=== PATIENT | female | born 1990 ===

== ENCOUNTER 2023-07-08 15:42 | Outpatient (AMB) | payer OTHER, SELFPAY ==
--- NOTE | 2023-07-08 15:43 | MHC.PC.OV ---
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 Transferring care from Dr Jocelyn Russell. Medical records have not been requested and have not received. 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 Previous PCP Dr. Russell in [place], last visit couple years ago. Medical history significant for environmental allergies-stable with Singulair daily and right hip/SIJ pain for the past couple years-patient denies injury-reports taking Aleve with some improvement - interested in PT. patient reports that eye and dental exams up-to-date. Reports tetanus vaccine in 2019. Reports Pap smear 12/2022 which was normal with HPV positive and repeat Pap smear in 1 year this was done in [place]-patient will establish with gynecology in the area. Patient reports that she had normal blood work couple months ago and she would like to hold off on new blood work orders at this time. No shortness of breath or chest pain. 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 1. Little interest or pleasure in doing things: not at all 2. Feeling down, depressed, or hopeless: not at all 3. Trouble falling or staying asleep, or sleeping too much: not at all 4. Feeling tired or having little energy: not at all 5. Poor appetite or overeating: not at all 6. Feeling bad about yourself - or that you are a failure or have let yourself or your family down: not at all 7. Trouble concentrating on things, such as reading the newspaper or watching television: not at all 8. Moving or speaking so slowly that other people could have noticed. Or the opposite - being so fidgety or restless that you have been moving around a lot more than usual: not at all 9. Thoughts that you would be better off or of hurting yourself in some way: not at all Total score: 0 Depression Screening Interpretation: Negative Depression Screening Done: Yes 25119 - PHQ-9 Billing: Yes Source: Developed by Drs. Nathaniel Ahuja, Iliana Mirza, Nestor Coe and colleagues, with an educational tejinder from [employer]. Thrive Questionnaire Date Thrive assessed: 07/08/23 I am a: Patient What is your living situation today?: I have a steady place to live Within the past 12 months, did the food you bought not last and you didn't have the money to get more?: Never true Within the past 12 months, did you worry whether your food would run out before you got money to buy more?: Never true Do you have trouble paying for medicines?: No Do you have trouble getting transportation to medical appointments?: No Do you have trouble paying your heating and electricity bill?: No Do you have trouble taking care of your child, family member or friend?: No Do you have trouble with day-to-day activities such as bathing, preparing meals, shopping, managing finances, etc.?: No Are you currently unemployed and looking for a job?: No Are you interested in more education?: No Currently or been in a relationship where the following occur: no concerns reported AUDIT C Alcohol Use Questionnaire (AUDIT-C) 1. How often do you have a drink containing alcohol?: 2-3 times a week Total Score: 3 Score Reviewed/Action Taken: No CONNOR-7 AMB Questionnaire CONNOR-7 Date CONNOR - 7 assessed: 07/08/23 Feeling nervous, anxious, or on edge: 0 = Not at all Not being able to stop or control worryin = Not at all Worrying too much about different things: 0 = Not at all Trouble relaxin = Not at all Being so restless that it is hard to sit still: 0 = Not at all Becoming easily annoyed or irritable: 0 = Not at all Feeling afraid as if something awful might happen: 0 = Not at all Total CONNOR-7 score (0-4 normal; 5-9 mild; 10-14 moderate; 15-21 severe): 0 Source: Developed by Drs. Nathaniel Ahuja, Iliana Mirza, Nestor Coe and colleagues, with an educational tejinder from [employer]. CONNOR-7 Assessment Billing CONNOR-7 Assessment Tool: CONNOR-7 Assessment 75155 Review of Systems Const Denies body aches, Denies chills, Denies fever(s) and Denies headache(s) Eyes Denies change in vision ENT Denies dizziness, Denies otalgia, Denies headache(s), Denies nasal discharge, Denies sinus pain and Denies sore throat Card Denies chest pain, Denies edema, Denies lightheadedness and Denies dyspnea Resp Denies cough, Denies dyspnea and Denies wheezing GI Denies abdominal pain, Denies constipation, Denies diarrhea, Denies nausea and Denies vomiting Denies dysuria Musc Denies myalgias and Reports arthralgias Skin/Breast Denies rash Neuro Denies dizziness and Denies headache(s) Aller/Immun Denies wheezing Physical exam (Primary Care) Vital Signs: Last Vital Signs Pulse 67 07/08/23 15:45 BP 110/60 07/08/23 15:45 Pulse Ox 98 07/08/23 15:45 Oxygen Delivery Method Room Air 07/08/23 15:45 BMI result Body Mass Index 21.2 Tobacco/Smoking Status: Tobacco use Status Tobacco use date assessed 07/08/23 07/08/23 15:52 Patient Tobacco Use Status Never used Tobacco 07/08/23 15:52 e-Cigarette/Vaping Use Never Used 07/08/23 15:52 PHQ-9: PHQ-9 Score PHQ-9: Total score 0 07/08/23 15:59 Depression Screening Interpretation: Negative Thrive Assessment: Date of Thrive Assessment Date Thrive assessed 07/08/23 07/08/23 15:52 Currently or been in a relationship where the following occur: no concerns reported Const General: cooperative and no acute distress Orientation/consciousness: patient oriented x3 HENMT Head: Yes normocephalic and Yes atraumatic Ears: TM's normal bilaterally Face and sinus: Yes sinuses nontender Mouth: oropharynx normal and moist mucous membranes Throat: Yes posterior oropharynx normal Eyes General: appearance normal, both eyes and all related structures Pupils: Equal, round and reactive pupils present EOM: EOMs intact bilaterally Neck Neck: Yes normal visual inspection, Yes full ROM and Yes no lymphadenopathy Thyroid: Thyroid normal Resp Effort & Inspection: normal respiratory effort and able to speak in complete sentences Auscultation: clear to auscultation bilaterally, no crackles, no rales, no rhonchi and no wheezes Cardio Rate: regular rate Rhythm: regular rhythm Heart sounds: S1 normal heart sound present, S2 normal heart sound present and no murmurs GI Palpation (GI): Soft to palpation, not firm, nontender, no guarding, not rigid and no hepatosplenomegaly Auscultation: normal bowel sounds General: No CVA tenderness Back/Spine/Pelvis Back: No CVA tenderness Skin General skin exam: no rashes or lesions noted Neuro General: patient oriented x3 Cranial nerves: Yes Equal, round and reactive pupils present Gait exam (Neuro): Normal gait present Extrem General: Yes full ROM and No edema Assessment and Plan Assessment & Plan (1) Right hip pain: Code(s): M25.551 - Pain in right hip Plan: PT referral Follow-up in office if no improvement after physical therapy Can continue Alelakesha p.r.n. (2) Environmental allergies: Code(s): Z91.09 - Other allergy status, other than to drugs and biological substances Plan: Stable with Singulair (3) Encounter to establish care: Code(s): Z76.89 - Persons encountering health services in other specified circumstances Orders: Orders PT Evaluation and Treatment 07/08/23 M25.551 - Pain in right hip Coding Level of Care Code New Pt Level 3 (34211) Diagnoses Right hip pain M25.551 Environmental allergies Z91.09 Encounter to establish care Z76.89 Additional Codes CONNOR-7 Assessment Billing - CONNOR-7 Assessment Tool: CONNOR-7 Assessment 51179 ([id number])
[2023-07-08 15:45] VITALS: BP 110/60; PULSE 67; O2SAT 98; BMI 21.2
== END 2023-07-08 16:08 | disposition home or self-care (01) ==
PROVIDERS: PCP Nurse Practitioner Family; Visit Provider Nurse Practitioner Family
DX: M25.551 Pain in right hip (principal); Z91.09 Other allergy status, other than to drugs and biological substances; Z76.89 Persons encountering health services in other specified circumstances
CPT/HCPCS: 99203